=== PATIENT | male | born 1975 | race Caucasian/White ===

== ENCOUNTER 2024-12-28 07:58 | Outpatient (CLI) | payer BC, SELFPAY ==
--- NOTE | 2024-12-28 08:02 | CTR_ITS ---
PROCEDURE INFORMATION: Exam: CT Neck With Contrast Exam date and time: 12/28/2024 8:34 AM Age: 49 years old Clinical indication: Mass, lump, or swelling in neck; Left; Additional info: Submandibular mass TECHNIQUE: Imaging protocol: Computed tomography of the neck with contrast. Radiation optimization: All CT scans at this facility use at least one of these dose optimization techniques: automated exposure control; mA and/or kV adjustment per patient size (includes targeted exams where dose is matched to clinical indication); or iterative reconstruction. Contrast material: OMNIPAQUE 350; Contrast volume: 100 ml; Contrast route: INTRAVENOUS (IV); COMPARISON: No relevant prior studies available. RADIATION DOSE METRICS: Total DLP (mGy-cm): 198.13 FINDINGS: Salivary glands: Normal. Glands are normal in size. Oral cavity: Simple appearing cystic lesion in the left submandibular region measuring 3.7 x 2.9 x 2.5 cm. No nodularity or septations. Pharynx: Unremarkable. No significant tonsillar enlargement. Larynx: Unremarkable. Epiglottis is normal. Thyroid: Normal. No enlarged or calcified nodules. Trachea: Visualized trachea is unremarkable. Lungs: Unremarkable as visualized. Lymph nodes: Unremarkable. No lymphadenopathy. Bones/joints: Unremarkable. No acute fracture. Soft tissues: Unremarkable. No significant soft tissue swelling. CT/CT neck w con* [id number] IMPRESSION: Simple appearing cystic lesion in the left submandibular region measuring 3.7 x 2.9 x 2.5 cm. No nodularity or septations. No abnormal enhancement. No cervical lymphadenopathy or suspicious masses. 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
[2024-12-28] MEDS: iohexol 350 mg/mL 500 mL Btl (per mL) IV (08:40)
== END 2024-12-28 07:59 | disposition home or self-care (01) ==
LOC: RAD 08:00
PROVIDERS: Family Provider Family Medicine; PCP Electrodiagnostic Medicine; Visit Provider Electrodiagnostic Medicine
DX: R22.0 Localized swelling, mass and lump, head (principal)
CPT/HCPCS: 70491